=== PATIENT | female | born 1950 | race Caucasian/White ===

== ENCOUNTER 2017-01-11 08:51 | Day surgery (SDC) | payer MEDICARE, OTHER ==
[~2017-01-11] VITALS: Ht 154.9 cm; Wt 95.9 kg
[2017-01-11 10:14] VITALS: Ht 154.9 cm; Wt 95.9 kg
[2017-01-11 10:23] VITALS: BP 145/77; PULSE 64; RESP 16
[2017-01-11] MEDS ORDERED: METF500T4 PO (10:24)
[2017-01-11] MEDS ORDERED: CHOL400T10 PO (10:24)
[2017-01-11] MEDS ORDERED: CALC-1 PO (10:24)
[2017-01-11] MEDS ORDERED: MAXZ25 PO (10:24)
[2017-01-11] MEDS ORDERED: PROP10TA6 PO (10:24)
[2017-01-11] MEDS ORDERED: LEVO125T75 PO (10:24)
[2017-01-11] MEDS ORDERED: AMLO-145 PO (10:24)
[2017-01-11] MEDS ORDERED: ALEN70TA30 PO (10:24)
[2017-01-11] MEDS ORDERED: PROPOFOL 40 ML ONE (10:54)
[2017-01-11 11:25] VITALS: BP 118/67; RESP 20
--- NOTE | 2017-01-12 02:05 | GILP ---
DATE OF PROCEDURE: NAME OF PROCEDURES: Colonoscopy and biopsy and polypectomy. SURGEON: Fredi Calvillo MD PREOPERATIVE DIAGNOSIS: Iron deficiency anemia. POSTOPERATIVE DIAGNOSES: 1. Colonoscopy all the way to the cecum. 2. Sigmoid colon polyp was removed using the snare and electrocautery. 3. Three small polyps in the sigmoid, transverse colon, and cecum were removed using the biopsy for ceps. 4. Internal hemorrhoids. INDICATION FOR THE PROCEDURE: Ms. Neha Gallagher is a 66-year-old female patient who had iron de ficiency anemia. She never had screening colonoscopy, so the patient was scheduled for colonoscopy for further evaluation. The procedure and possible complications were well explained to the patient. She understood and con sented to the procedure, DESCRIPTION OF PROCEDURE: Under the influence of anesthesia, the colonoscope was carefully introduc ed in the rectum. Under direct vision, it was advanced all the way to the cecum. FINDINGS: The patient had a sigmoid colon polyp and it was removed using the snare and electrocaute ry. She also had 3 more small polyps, one in the sigmoid colon, another one in the colon, and the t hird one in the cecum and they were removed using the biopsy forceps. She was noted to have interna l hemorrhoids. She tolerated the procedures very well and there was no complication from the procedures. At the en d of the procedures, she was awake with stable vital signs and she was discharged home to the care o f her family. IMPRESSION: 1. Sigmoid colon polyp was removed using the snare and electrocautery. 2. Three small polyps from the sigmoid, transverse colon, and cecum were removed using the biopsy f orceps. 3. Internal hemorrhoids. PLAN: 1. Await histopathology report. 2. Next screening colonoscopy in 5 years. Dictated By: FREDI CALVILLO MD GD/NTS Conf#: [id number] DID#: [id number] CC: FREDI CALVILLO MD;*End*
== END 2017-01-11 13:02 | disposition home or self-care (01) ==
LOC: GIL 08:51
PROVIDERS: ATTEND Internal Medicine Gastroenterology
DX: D12.5 Benign neoplasm of sigmoid colon (principal); D12.3 Benign neoplasm of transverse colon; K64.8 Other hemorrhoids; E03.9 Hypothyroidism, unspecified; I10 Essential (primary) hypertension; E11.9 Type 2 diabetes mellitus without complications; E66.01 Morbid (severe) obesity due to excess calories; Z68.39 Body mass index [BMI] 39.0-39.9, adult; D50.0 Iron deficiency anemia secondary to blood loss (chronic)
CPT/HCPCS: 82962; 88305